=== PATIENT | female | born 1940 | race Caucasian/White ===

== ENCOUNTER 2023-01-19 07:57 | Outpatient (CLI) | payer MEDICARE, BC ==
[2023-01-19] MEDS ORDERED: Magnevist 469MG/ML 20 ML VIAL ONE (09:12)
== END 2023-01-19 07:58 | disposition home or self-care (01) ==
LOC: BICMRI 07:57
PROVIDERS: ATTEND Internal Medicine Gastroenterology
DX: R93.3 Abnormal findings on diagnostic imaging of other parts of digestive tract (principal); F03.90 Unspecified dementia, unspecified severity, without behavioral disturbance, psychotic disturbance, mood disturbance, and anxiety; N28.1 Cyst of kidney, acquired; R13.10 Dysphagia, unspecified; K21.9 Gastro-esophageal reflux disease without esophagitis; N28.89 Other specified disorders of kidney and ureter; T88.59XA Other complications of anesthesia, initial encounter; Z91.09 Other allergy status, other than to drugs and biological substances
CPT/HCPCS: 74183; 82565; A9579

== ENCOUNTER 2024-01-24 17:02 | Observation (INO) | payer MEDICARE ==
[2024-01-24 18:16] LABS: #Basophils Less than 0.03 10x3/uL (0.0-0.2); %Basophils 0.4 % (0.0-1.0); %Lymphocytes 25.8 % (21.0-51.0); %Monocytes 5.9 % (0.0-10.0); %Neutrophils 66.7 % (42.0-75.0); Hematocrit 38.7 % (36.0-47.0); Mean Corpuscular HGB CONC 33.6 g/dL (32.0-36.0); Mean Corpuscular Volume 89.2 fL (78.0-98.0); Mean Platelet Volume 9.8 fL (7.4-10.4); Platelet Count 167 10x3/uL (130-400); RBC Distribution Width 13.5 % (11.5-14.5); Red Blood Cell (RBC) Count 4.34 mill/uL (4.20-5.40)
[2024-01-24] MEDS ORDERED: Nitroglycerin 2% Ointment 1 INCH/1 GM Packet ONE (18:29)
[2024-01-24 18:32] LABS: ALT (SGPT) 18 U/L (8-55); AST (SGOT) 23 U/L (5-34); Albumin 3.7 g/dL (3.4-4.8); Alkaline Phosphatase 86 U/L (40-110); Anion Gap 13 mmol/L (10-20); BUN (Urea Nitrogen) 16 mg/dL (9.8-20.1); Bilirubin, Total 0.6 mg/dL (0.2-1.2); Calc. Creatinine Clearance 0 mL/min (70-130); Calcium 9.7 mg/dL (7.8-10.44); Carbon Dioxide 24 mmol/L (23-31); Chloride 107 mmol/L (98-107); Estimated GFR 87; Globulin 2.8 g/dL (2.4-3.5); Glucose 113 mg/dL (83-110); Potassium 3.7 mmol/L (3.5-5.1); Protein, Total 6.5 g/dL (5.8-8.1); Sodium 140 mmol/L (136-145)
[2024-01-24 18:39] LABS: Troponin I Less than 0.010 ng/mL (< 0.028)
[2024-01-24] MEDS ORDERED: Acetaminophen 325 MG TAB PO PRN (21:09)
[2024-01-24] MEDS ORDERED: Ondansetron ODT 4 MG TAB PO PRN (21:09)
[2024-01-24] MEDS ORDERED: Ondansetron PF 4 MG/2 ML Vial IVP PRN (21:09)
[2024-01-24 22:28] LABS: Troponin I Less than 0.010 ng/mL (< 0.028)
[2024-01-24 22:42] VITALS: BMI 23.9
[2024-01-24] MEDS: Amlodipine 5 MG TAB PO SCH (23:11)
[2024-01-25 00:36] LABS: Troponin I Less than 0.010 ng/mL (< 0.028)
[2024-01-25 04:14] LABS: #Basophils Less than 0.03 10x3/uL (0.0-0.2); %Basophils 0.1 % (0.0-1.0); %Eosinophils 1.3 % (0.0-10.0); %Lymphocytes 18.9 % (21.0-51.0); %Monocytes 6.1 % (0.0-10.0); %Neutrophils 73.3 % (42.0-75.0); Hemoglobin 12.7 g/dL (12.0-16.0); Mean Corpuscular HGB CONC 33.4 g/dL (32.0-36.0); Mean Corpuscular Hemoglobin 30.4 pg (27.0-31.0); Mean Corpuscular Volume 90.9 fL (78.0-98.0); Platelet Count 173 10x3/uL (130-400); RBC Distribution Width 13.9 % (11.5-14.5); Red Blood Cell (RBC) Count 4.18 mill/uL (4.20-5.40)
[2024-01-25 04:48] LABS: Anion Gap 15 mmol/L (10-20); BUN (Urea Nitrogen) 13 mg/dL (9.8-20.1); Calc. Creatinine Clearance 63 mL/min (70-130); Calcium 9.3 mg/dL (7.8-10.44); Carbon Dioxide 24 mmol/L (23-31); Chloride 108 mmol/L (98-107); Estimated GFR 86; Glucose 95 mg/dL (83-110); Potassium 3.5 mmol/L (3.5-5.1); Sodium 143 mmol/L (136-145)
[2024-01-25] MEDS: Levothyroxine Sodium 100 MCG TAB PO SCH (06:34)
[2024-01-25] MEDS: Donepezil HCl 10 MG TAB PO SCH (09:13)
[2024-01-25] MEDS: Aspirin 81 mg Enteric Coated Tablet PO SCH (09:13)
[2024-01-25] MEDS: Isosorbide Mononitrate 60 MG ER.TAB PO SCH (09:13)
[2024-01-25] MEDS: Ranolazine ER 500 MG TAB PO SCH (09:13)
[2024-01-25] MEDS: Multivit, Therapeutic 1 TAB PO SCH (09:13)
[2024-01-25] MEDS: Amlodipine 5 MG TAB PO SCH (09:13)
[2024-01-25] MEDS: Pantoprazole DR 40 MG TAB PO SCH (09:13)
[2024-01-25] MEDS: Memantine 5 MG TAB PO SCH (09:13)
[2024-01-25] MEDS: Enoxaparin 40 MG (0.4 mL) SYRINGE SC SCH (09:14)
[2024-01-25] MEDS ORDERED: Iopamidol 370 76% 100 ML VIAL ONE (10:55)
[2024-01-25 11:36] VITALS: BP 133/61; TEMP 97.4
[2024-01-25] MEDS ORDERED: Rosuvastatin 20 MG TAB PO SCH (21:00)
[2024-01-25] MEDS ORDERED: Mirtazapine 15 MG TAB PO SCH (21:00)
== END 2024-01-25 12:33 | disposition home or self-care (01) ==
LOC: ERS 17:02 → 2SW 20:27
PROVIDERS: ADMIT Student in an Organized Health Care Education/Training Program; ATTEND Internal Medicine
DX: R07.9 Chest pain, unspecified (principal); R06.02 Shortness of breath; I25.10 Atherosclerotic heart disease of native coronary artery without angina pectoris; I10 Essential (primary) hypertension; E78.5 Hyperlipidemia, unspecified; E03.9 Hypothyroidism, unspecified; G47.33 Obstructive sleep apnea (adult) (pediatric); F03.90 Unspecified dementia, unspecified severity, without behavioral disturbance, psychotic disturbance, mood disturbance, and anxiety; Z79.82 Long term (current) use of aspirin; Z79.890 Hormone replacement therapy; Z79.899 Other long term (current) drug therapy; Z90.89 Acquired absence of other organs; Z88.0 Allergy status to penicillin
CPT/HCPCS: 71045; 71275; 80048; 80053; 82962; 83880; 84484 ×2; 85025 ×2; 93005; 96372; 99285; G0378 ×3; J1650; Q9967; 36415; 36416

== ENCOUNTER 2024-05-23 08:13 | Outpatient (CLI) | payer MEDICARE, BC ==
[2024-05-23] MEDS ORDERED: Barium Sulfate 96% 176 GM BOT (xray ONLY) ONE (08:29)
[2024-05-23] MEDS ORDERED: E-Z-HD 98% W/W 340GM BOT (x-ray ONLY) ONE (08:29)
== END 2024-05-23 08:14 | disposition home or self-care (01) ==
LOC: RAD 08:13
PROVIDERS: ATTEND Internal Medicine Gastroenterology
DX: K21.9 Gastro-esophageal reflux disease without esophagitis (principal); K59.09 Other constipation; N39.0 Urinary tract infection, site not specified; N28.89 Other specified disorders of kidney and ureter; F03.90 Unspecified dementia, unspecified severity, without behavioral disturbance, psychotic disturbance, mood disturbance, and anxiety
CPT/HCPCS: 74246